=== PATIENT | male | born 1955 | race Caucasian/White ===

== ENCOUNTER 2018-11-25 05:56 | Day surgery (SDC) | payer OTHER ==
[2018-11-25] MEDS ORDERED: DIPHENHYDRAMINE 50 MG INJ (08:01)
[2018-11-25] MEDS ORDERED: FENTAnyl 50 MCG/ML VIAL (08:47)
[2018-11-25] MEDS ORDERED: MIDAZOLAM 1 MG/ML 2 ML INJ ×3 (08:48)
== END 2018-11-25 08:44 | disposition home or self-care (01) ==
LOC: GIL 05:56
DX: Z12.11 Encounter for screening for malignant neoplasm of colon (principal); K57.30 Diverticulosis of large intestine without perforation or abscess without bleeding; K64.8 Other hemorrhoids
CPT/HCPCS: 45380; 88305